=== PATIENT | male | born 1990 | race Caucasian/White ===

== ENCOUNTER 2018-02-20 07:43 | Emergency (ER) | payer OTHER ==
[~2018-02-20] VITALS: Ht 188 cm; Wt 113.6 kg
[2018-02-20 07:53] VITALS: Ht 188 cm; Wt 113.6 kg
[2018-02-20 09:50] VITALS: BP 143/85
== END 2018-02-20 09:53 | disposition home or self-care (01) ==
LOC: D.ER 07:43
DX: T63.091A Toxic effect of venom of other snake, accidental (unintentional), initial encounter (principal); Y92.89 Other specified places as the place of occurrence of the external cause; K21.9 Gastro-esophageal reflux disease without esophagitis

== ENCOUNTER 2018-06-23 16:59 | Emergency (ER) | payer OTHER ==
[2018-02-20 07:53] VITALS: BMI 32.1
== END 2018-06-23 18:54 | disposition left against medical advice (07) ==
LOC: D.ER 16:59
DX: M79.603 Pain in arm, unspecified (principal)